=== PATIENT | female | born 1935 | race Caucasian/White ===

== ENCOUNTER 2017-01-26 08:00 | Outpatient (CLI) | payer MEDICARE, OTHER | END 2017-01-26 08:01 | disposition home or self-care (01) | LOC: BICMAMMO 08:00 | PROVIDERS: ATTEND Family Medicine | DX: Z12.31 Encounter for screening mammogram for malignant neoplasm of breast (principal) | CPT/HCPCS: G0204; G0279; 77063; 77066; 77067; G0202 ==

== ENCOUNTER 2017-03-15 13:23 | Outpatient (CLI) | payer MEDICARE ==
--- NOTE | 2017-03-15 14:08 | ULT ---
RIGHT LOWER EXTREMITY VENOUS DUPLEX SONOGRAM: HISTORY: Right leg pain and edema. FINDINGS: The right common femoral vein and greater saphenous junction are evaluated along with the femoral, de ep femoral, popliteal, and posterior tibial veins. There is good color and spectral Doppler flow, co mpression, and augmentation. Fluid collection at the right popliteal fossa measures up to 4.1 cm keesah gth x 1.1 cm depth. IMPRESSION: 1. No sonographic evidence of deep vein thrombosis within the right lower extremity. 2. Alas cyst right popliteal fossa. POS: DAVID
== END 2017-03-15 13:24 | disposition home or self-care (01) ==
LOC: ULT 13:23
PROVIDERS: ATTEND Internal Medicine Rheumatology
DX: M79.604 Pain in right leg (principal); M71.21 Synovial cyst of popliteal space [Baker], right knee

== ENCOUNTER 2017-06-05 16:23 | Outpatient (CLI) | payer MEDICARE ==
--- NOTE | 2017-06-05 17:56 | ULT ---
RIGHT LOWER EXTREMITY VENOUS DUPLEX SONOGRAM: HISTORY: Right leg pain and edema. TECHNIQUE: The right common femoral vein and greater saphenous junction were evaluated, along with the femoral, deep femoral, popliteal, and posterior tibial veins. FINDINGS: There is good color and spectral Doppler flow, compression, and augmentation. A Alas cyst at the po pliteal fossa measures up to 3.8 cm. IMPRESSION: 1. No sonographic evidence of deep venous thrombosis, right lower extremity. 2. Alas cyst, right popliteal fossa. POS: DAVID
== END 2017-06-05 16:24 | disposition home or self-care (01) ==
LOC: SCSULT 16:23
PROVIDERS: ATTEND Physician Assistant
DX: M79.604 Pain in right leg (principal); M71.21 Synovial cyst of popliteal space [Baker], right knee

== ENCOUNTER 2018-05-04 13:08 | Outpatient (CLI) | payer MEDICARE ==
--- NOTE | 2018-05-04 15:28 | RAD ---
4 VIEWS LUMBOSACRAL SPINE: Date: 05/04/18 HISTORY: Low back pain and left hip pain. Prior low back surgeries. FINDINGS: AP, lateral, and flexion/extension views of lumbosacral spine were performed. The patient is status p ost fusion of L2, L3, and L4, with right-sided pedicle screws. No perihardware lucency seen surroundi ng the screws. The patient is also fused at L5-S1. Disc spacers are seen in good position within the L2-3 and L3-4 disc spaces. The vertebral bodies demonstrate normal alignment without fracture or subl uxation. Alignment is unchanged with flexion and extension. There are also degenerative changes with intervertebral disc space narrowing in the lower thoracic and upper lumbar spine. IMPRESSION: Postsurgical changes of the lumbar spine with unchanged alignment with bending. POS: DAVID
--- NOTE | 2018-05-04 16:31 | CT ---
CT OF THE LUMBAR SPINE WITHOUT CONTRAST: 05/04/18 INDICATION: History of low back pain and left hip pain with three prior back surgeries. COMPARISON: Prior CT of the lumbar spine dated 05/17/17. FINDINGS: The right posterolateral interbody fusion spanning L3 through L5 is stable. There is solid osseous in corporation of the interbody bone graft extending on the left from L3 to L5 and on the right from L3 to S1. There is slight retrolisthesis of L2 on L3 which has progressed from a prior exam. There is a superior end plate compression deformity of T12 that appears chronic. There are moderate degenerative changes of the SI joints bilaterally. At the L5-S1 level, there is a broad based disc osteophyte complex and facet hypertrophy inducing mod erate osseous neural foraminal narrowing. This has mildly progressed since the prior exam. At L4-5, there is a disc osteophyte complex and facet hypertrophy inducing at least moderate to sever e bilateral neural foraminal narrowing. This is mildly progressed from the prior exam. At L3-4, there is a broad based disc osteophyte complex and facet hypertrophy inducing moderate right neural foraminal narrowing which is stable to the prior exam. At the L2-3 level, there is at least moderate central canal narrowing at L2-3 due to broad based disc osteophyte complex and facet hypertrophy. This has mildly worsened from the prior exam. There is sev ere bilateral osseous neural foraminal narrowing due to the disc osteophyte complex and facet joint d egenerative change as well as the retrolisthesis. This is new from the prior exam. At L1-2, there is a disc osteophyte complex and facet hypertrophy inducing mild bilateral osseous prudence ral foraminal narrowing which has progressed from the prior exam. At T12-L1, there is no appreciable central canal or neural foraminal narrowing. IMPRESSION: 1. Worsening adjacent segment degeneration at L2-3 with retrolisthesis of L2-3 in addition to a disc osteophyte complex and facet hypertrophy inducing now moderate central canal narrowing with at l east severe bilateral neural foraminal narrowing. 2. Mild progression of osseous neural foraminal narrowing at L4-5 and L5-S1 due to more prominen t osteophyte formation. 3. Posterior interbody fusion of L3 through L5 with solid osseous incorporation of the bone surinder t. Bone graft does appear to be incorporating on the right from L5 to S1 as well. 4. 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 POS: H
--- NOTE | 2018-05-04 16:41 | MRI ---
LUMBAR SPINE MRI WITHOUT CONTRAST: Date: 05/04/18 HISTORY: [id number] female with a history of prior lumbar spine surgery and complaints of low back pain with left hip pain/radiculopathy. TECHNIQUE: Multiplanar, multisequence MR imaging of the lumbar spine provided without contrast. FINDINGS: Sagittal STIR imaging demonstrates no focal area of osseous marrow edema. There appears to be a transitional type S1 vertebral body with right-sided pedicle screws thus presen t at L3, L4, and L5 with vertically oriented interlocking rods. Intervertebral disc devices are noted at the L3-4 and L4-5 levels. On the basis of five lumbar-type vertebral bodies, the conus medullaris terminates at the L1 level. T12-L1: There is disc space narrowing and disc desiccation with minimal disc bulge causing no signif icant central canal or neural foraminal stenosis. L1-2: Bilateral facet hypertrophy, left greater than right. There is disc space narrowing and vacuum disc formation with a posterior disc osteophyte complex leading to a mild degree of central canal st enosis. Mild facet hypertrophy bilaterally with no significant associated neural foraminal stenosis. L2-3: There is disc space narrowing and disc desiccation with a disc osteophyte complex. There is a mild degree of associated central canal stenosis. Significant facet hypertrophy noted with moderate bilateral neural foraminal stenosis. L3-4: Evaluation for central canal stenosis is limited on the basis of hardware artifact. No signifi cant central canal or neural foraminal stenosis is evident. L4-5: There is disc space narrowing and bilateral facet hypertrophy. Mild bilateral neural foraminal stenosis and mild central canal stenosis. L5-S1: Disc space narrowing and disc desiccation with anterior osteophyte formation and small computer laboratory technician ior disc osteophyte complex. Mild left lateral recess stenosis. Bilateral facet hypertrophy with no s ignificant neural foraminal stenosis. The visualized retroperitoneal structures demonstrate no acute findings. IMPRESSION: Multilevel postoperative and degenerative change within the lumbar spine. There appears to be a trans itional vertebral body at the S1 level, and thus, there is postoperative hardware at the L3, L4, and L5 levels. Please see images on PACS for labeling purposes. The most significant degenerative change is noted at the L2-3, and to a lesser degree L1-2 levels. POS: [facility]
== END 2018-05-04 13:09 | disposition home or self-care (01) ==
LOC: TBSIIMAG 13:08
PROVIDERS: ATTEND Surgery
DX: M51.16 Intervertebral disc disorders with radiculopathy, lumbar region (principal); M53.3 Sacrococcygeal disorders, not elsewhere classified; M47.26 Other spondylosis with radiculopathy, lumbar region; M43.16 Spondylolisthesis, lumbar region; M48.061 Spinal stenosis, lumbar region without neurogenic claudication; M48.07 Spinal stenosis, lumbosacral region; Z98.1 Arthrodesis status
CPT/HCPCS: 72110; 72131; 72148

== ENCOUNTER 2021-01-10 13:42 | Inpatient (IN) | payer MEDICARE ==
[2021-01-10] MEDS ORDERED: Diltiazem 125 MG/25 ML ONE (14:12)
[2021-01-10 14:22] LABS: #Eosinphils 0.1 thou/uL (0.0-0.7); #Lymphocytes 0.9 thou/uL (1.20-3.40); #Monocytes 0.7 thou/uL (0.11-0.59); #Neutrophils 9.7 thou/uL (1.40-6.50); %Eosinophils 0.6 % (0.0-10.0); %Lymphocytes 8.1 % (21.0-51.0); %Monocytes 6.2 % (0.0-10.0); %Neutrophils 85.1 % (42.0-75.0); Hemoglobin 11.8 g/dL (12.0-16.0); Mean Corpuscular HGB CONC 33.6 g/dL (32.0-36.0); Mean Corpuscular Volume 95.2 fL (78.0-98.0); Mean Platelet Volume 6.6 fL (7.4-10.4); Platelet Count 320 thou/uL (130-400); RBC Distribution Width 11.7 % (11.5-14.5); Red Blood Cell (RBC) Count 3.68 mill/uL (4.20-5.40); White Blood Cell (WBC) Count 11.4 thou/uL (4.8-10.8)
[2021-01-10 14:41] LABS: ALT (SGPT) 44 U/L (8-55); AST (SGOT) 67 U/L (5-34); Albumin 3.5 g/dL (3.4-4.8); Alkaline Phosphatase 100 U/L (40-110); Anion Gap 17 mmol/L (10-20); BUN (Urea Nitrogen) 29 mg/dL (9.8-20.1); Bilirubin, Total 0.8 mg/dL (0.2-1.2); Calc. Creatinine Clearance 0 mL/min (70-130); Calcium 8.7 mg/dL (7.8-10.44); Carbon Dioxide 24 mmol/L (23-31); Chloride 102 mmol/L (98-107); Globulin 3.8 g/dL (2.4-3.5); Glucose 200 mg/dL (83-110); Magnesium 2.3 mg/dL (1.6-2.6); Potassium 4.5 mmol/L (3.5-5.1); Protein, Total 7.3 g/dL (5.8-8.1); Sodium 138 mmol/L (136-145)
[2021-01-10 15:04] LABS: CKMB 2.2 ng/mL (0-6.6)
[2021-01-10] MEDS ORDERED: Aspirin Chewable 81 MG TAB ONE (15:05)
[2021-01-10] MEDS ORDERED: Enoxaparin Sodium 80 MG/0.8 ML SYRINGE ONE (15:10)
[2021-01-10] MEDS ORDERED: Diltiazem HCl 125 MG, Admixture Fee 1 EACH in Sodium Chloride 0.9% 100 ML IVPB SCH (17:00)
[2021-01-10] MEDS ORDERED: Digoxin 0.5 MG/2 ML AMP SLOW IVP SCH (17:15)
[2021-01-10] MEDS ORDERED: FLU VACC QS2021-22(65YR UP)/PF 240 MCG/0.7 ML SYRINGE IM ONE (17:30)
[2021-01-10 18:02] LABS: Troponin I 0.078 ng/mL (< 0.028)
[2021-01-10] MEDS ORDERED: methylPREDNISolone Sod Succ/PF 125 MG/2 ML VIAL IVP SCH (18:30)
[2021-01-10] MEDS ORDERED: Ondansetron PF 4 MG/2 ML Vial IVP PRN (19:03)
[2021-01-10] MEDS ORDERED: Bisacodyl 5 MG TAB PO PRN (19:03)
[2021-01-10] MEDS ORDERED: Senokot S 8.6-50 MG TAB PO PRN (19:03)
[2021-01-10] MEDS: Famotidine/PF 20 mg/2ml Vial SLOW IVP SCH (20:36)
[2021-01-10 21:00] LABS: SARS-CoV-2 PCR by NAA Not Detected (NotDetected)
[2021-01-10] MEDS ORDERED: Oseltamivir 75 MG CAP PO SCH (21:00)
[2021-01-10 21:29] LABS: Troponin I 0.057 ng/mL (< 0.028)
[2021-01-10] MEDS ORDERED: Albuterol Sulfate 1.25 MG/3 ML NEB EZPAP SCH (23:59)
[2021-01-11] MEDS ORDERED: Furosemide 20 MG/2 ML VIAL SLOW IVP SCH (03:45)
[2021-01-11] MEDS: Levalbuterol HCl 0.63 MG/3 ML NEB FS SCH ×4 (04:00→18:24)
[2021-01-11 06:17] LABS: #Lymphocytes 0.6 thou/uL (1.20-3.40); #Monocytes 0.1 thou/uL (0.11-0.59); #Neutrophils 5.2 thou/uL (1.40-6.50); %Basophils 0.1 % (0.0-1.0); %Eosinophils 0.1 % (0.0-10.0); %Lymphocytes 9.5 % (21.0-51.0); %Monocytes 2.2 % (0.0-10.0); %Neutrophils 88.1 % (42.0-75.0); Mean Corpuscular HGB CONC 33.2 g/dL (32.0-36.0); Mean Corpuscular Volume 96.4 fL (78.0-98.0); Mean Platelet Volume 6.6 fL (7.4-10.4); Platelet Count 294 thou/uL (130-400); RBC Distribution Width 11.6 % (11.5-14.5); Red Blood Cell (RBC) Count 3.45 mill/uL (4.20-5.40); White Blood Cell (WBC) Count 5.9 thou/uL (4.8-10.8)
[2021-01-11 06:39] LABS: ALT (SGPT) 38 U/L (8-55); AST (SGOT) 43 U/L (5-34); Albumin 3.1 g/dL (3.4-4.8); Alkaline Phosphatase 92 U/L (40-110); Anion Gap 15 mmol/L (10-20); BUN (Urea Nitrogen) 24 mg/dL (9.8-20.1); Bilirubin, Total 0.5 mg/dL (0.2-1.2); Calc. Creatinine Clearance 80 mL/min (70-130); Calcium 9.2 mg/dL (7.8-10.44); Carbon Dioxide 22 mmol/L (23-31); Chloride 106 mmol/L (98-107); Globulin 4.2 g/dL (2.4-3.5); Glucose 182 mg/dL (83-110); Potassium 4.2 mmol/L (3.5-5.1); Protein, Total 7.3 g/dL (5.8-8.1); Sodium 139 mmol/L (136-145)
[2021-01-11] MEDS ORDERED: Metoprolol Tartrate 25 MG TAB PO SCH (09:00)
[2021-01-11] MEDS ORDERED: methylPREDNISolone Sod Succ/PF 125 MG/2 ML VIAL IVP SCH (09:00)
[2021-01-11] MEDS: Atorvastatin Calcium 20 MG TAB PO SCH (09:34)
[2021-01-11] MEDS: Donepezil HCl 10 MG TAB PO SCH (09:34)
[2021-01-11] MEDS: methylPREDNISolone Sod Succ 40 MG VIAL IVP SCH (09:35)
[2021-01-11] MEDS: Famotidine/PF 20 mg/2ml Vial SLOW IVP SCH ×2 (09:35→20:57)
[2021-01-11] MEDS ORDERED: Enoxaparin Sodium 40 MG/0.4 ML SYRINGE SC SCH (10:00)
[2021-01-11] MEDS ORDERED: Furosemide 40 MG/4 ML VIAL SLOW IVP SCH (10:00)
[2021-01-11] MEDS ORDERED: Potassium Chloride 20 MEQ TAB PO SCH (12:00)
[2021-01-11] MEDS: Dronedarone HCl 400 MG TAB PO SCH (16:15)
[2021-01-11] MEDS: Melatonin 3 MG TAB PO SCH (20:57)
[2021-01-12] MEDS: Levalbuterol HCl 0.63 MG/3 ML NEB FS SCH ×4 (00:56→18:34)
[2021-01-12 05:00] LABS: #Basophils 0.1 thou/uL (0.0-0.2); #Lymphocytes 0.7 thou/uL (1.20-3.40); #Monocytes 0.7 thou/uL (0.11-0.59); #Neutrophils 9.6 thou/uL (1.40-6.50); %Basophils 0.5 % (0.0-1.0); %Eosinophils 0.1 % (0.0-10.0); %Monocytes 6.5 % (0.0-10.0); %Neutrophils 86.8 % (42.0-75.0); Hemoglobin 11.2 g/dL (12.0-16.0); Mean Corpuscular HGB CONC 33.3 g/dL (32.0-36.0); Mean Corpuscular Hemoglobin 32.1 pg (27.0-31.0); Mean Corpuscular Volume 96.4 fL (78.0-98.0); Mean Platelet Volume 6.8 fL (7.4-10.4); Platelet Count 337 thou/uL (130-400); RBC Distribution Width 11.7 % (11.5-14.5); Red Blood Cell (RBC) Count 3.47 mill/uL (4.20-5.40)
[2021-01-12 05:25] LABS: Anion Gap 14 mmol/L (10-20); BUN (Urea Nitrogen) 31 mg/dL (9.8-20.1); Calc. Creatinine Clearance 75 mL/min (70-130); Calcium 9.4 mg/dL (7.8-10.44); Carbon Dioxide 24 mmol/L (23-31); Chloride 107 mmol/L (98-107); Glucose 160 mg/dL (83-110); Potassium 4.4 mmol/L (3.5-5.1); Sodium 141 mmol/L (136-145)
[2021-01-12] MEDS ORDERED: Furosemide 40 MG/4 ML VIAL SLOW IVP SCH ×2 (06:00→14:00)
[2021-01-12] MEDS: Donepezil HCl 10 MG TAB PO SCH (08:37)
[2021-01-12] MEDS: methylPREDNISolone Sod Succ 40 MG VIAL IVP SCH (08:38)
[2021-01-12] MEDS: Atorvastatin Calcium 20 MG TAB PO SCH (08:38)
[2021-01-12] MEDS: Dronedarone HCl 400 MG TAB PO SCH (08:38)
[2021-01-12] MEDS: Famotidine/PF 20 mg/2ml Vial SLOW IVP SCH ×2 (08:38→21:13)
[2021-01-12] MEDS ORDERED: Enoxaparin Sodium 40 MG/0.4 ML SYRINGE SC SCH (09:00)
[2021-01-12] MEDS ORDERED: Polyethylene Glycol 3350 17 GM Packet PO SCH (11:00)
[2021-01-12] MEDS ORDERED: Amiodarone 200 MG TAB PO SCH (13:30)
[2021-01-12] MEDS: Furosemide 20 MG/2 ML VIAL SLOW IVP SCH (13:57)
[2021-01-12] MEDS: Diltiazem 125 MG in Sodium Chloride 0.9% 100 ML IVPB SCH (14:56)
[2021-01-12] MEDS: Acetaminophen 325 MG TAB PO PRN ×2 (15:01→23:54)
[2021-01-12] MEDS: Amiodarone 200 MG TAB PO SCH (21:11)
[2021-01-12] MEDS: Enoxaparin Sodium 40 MG/0.4 ML SYRINGE SC SCH (21:13)
[2021-01-12] MEDS: Melatonin 3 MG TAB PO SCH (21:13)
[2021-01-13] MEDS: Milk Of Magnesia 30 ML UDCUP PO PRN ×2 (00:27→08:44)
[2021-01-13] MEDS: Levalbuterol HCl 0.63 MG/3 ML NEB FS SCH ×4 (01:09→18:43)
[2021-01-13] MEDS ORDERED: Mineral Oil ENEMA PR SCH (02:00)
[2021-01-13] MEDS: Diltiazem 125 MG in Sodium Chloride 0.9% 100 ML IVPB SCH ×2 (05:07→18:30)
[2021-01-13] MEDS: Furosemide 20 MG/2 ML VIAL SLOW IVP SCH ×2 (05:12→15:20)
[2021-01-13] MEDS: Amiodarone 200 MG TAB PO SCH ×3 (08:45→21:24)
[2021-01-13] MEDS: Atorvastatin Calcium 20 MG TAB PO SCH (08:45)
[2021-01-13] MEDS: Famotidine/PF 20 mg/2ml Vial SLOW IVP SCH ×2 (08:46→21:24)
[2021-01-13] MEDS: Enoxaparin Sodium 40 MG/0.4 ML SYRINGE SC SCH ×2 (08:46→21:27)
[2021-01-13] MEDS: Donepezil HCl 10 MG TAB PO SCH (08:46)
[2021-01-13] MEDS: methylPREDNISolone Sod Succ 40 MG VIAL IVP SCH (08:46)
[2021-01-13 12:42] VITALS: BMI 32.3
[2021-01-13] MEDS: Melatonin 3 MG TAB PO SCH (21:24)
[2021-01-14] MEDS: Levalbuterol HCl 0.63 MG/3 ML NEB FS SCH ×2 (01:18→07:25)
[2021-01-14 05:00] LABS: Anion Gap 13 mmol/L (10-20); BUN (Urea Nitrogen) 39 mg/dL (9.8-20.1); Calc. Creatinine Clearance 65 mL/min (70-130); Carbon Dioxide 32 mmol/L (23-31); Chloride 98 mmol/L (98-107); Glucose 139 mg/dL (83-110); Potassium 4.1 mmol/L (3.5-5.1); Sodium 139 mmol/L (136-145)
[2021-01-14] MEDS: Furosemide 20 MG/2 ML VIAL SLOW IVP SCH (05:09)
[2021-01-14] MEDS: Donepezil HCl 10 MG TAB PO SCH (08:54)
[2021-01-14] MEDS: Amiodarone 200 MG TAB PO SCH (08:54)
[2021-01-14] MEDS: Famotidine/PF 20 mg/2ml Vial SLOW IVP SCH (08:54)
[2021-01-14] MEDS: Atorvastatin Calcium 20 MG TAB PO SCH (08:54)
[2021-01-14] MEDS: methylPREDNISolone Sod Succ 40 MG VIAL IVP SCH (08:54)
[2021-01-14] MEDS: Enoxaparin Sodium 40 MG/0.4 ML SYRINGE SC SCH (08:55)
[2021-01-14] MEDS: Milk Of Magnesia 30 ML UDCUP PO PRN (08:55)
[2021-01-14 11:34] VITALS: BP 164/71; TEMP 97.4
== END 2021-01-14 13:34 | disposition home or self-care (01) | DRG 280 ==
LOC: ERS 13:42 → 2NO 15:34
PROVIDERS: ADMIT Internal Medicine; ATTEND Internal Medicine
DX: I48.0 Paroxysmal atrial fibrillation (principal); I21.A1 Myocardial infarction type 2; I50.33 Acute on chronic diastolic (congestive) heart failure; I11.0 Hypertensive heart disease with heart failure; Z20.822 Contact with and (suspected) exposure to COVID-19; E78.5 Hyperlipidemia, unspecified; R29.6 Repeated falls; G30.1 Alzheimer's disease with late onset; F02.80 Dementia in other diseases classified elsewhere, unspecified severity, without behavioral disturbance, psychotic disturbance, mood disturbance, and anxiety; M06.9 Rheumatoid arthritis, unspecified; H40.9 Unspecified glaucoma; F32.A Depression, unspecified; R73.9 Hyperglycemia, unspecified; J20.9 Acute bronchitis, unspecified; Z96.653 Presence of artificial knee joint, bilateral; E78.00 Pure hypercholesterolemia, unspecified; Z88.5 Allergy status to narcotic agent; Z91.040 Latex allergy status; Z79.82 Long term (current) use of aspirin; Z79.899 Other long term (current) drug therapy; Z98.1 Arthrodesis status
CPT/HCPCS: 36415; 36416; 71045; 80048; 80053; 82553; 82728; 83036; 83735; 83880; 84484; 85025; 93005; 93306; 94640; 96365; 96366; 96372; 96374; 96376; J1160; J1650; J1940; J2920; J2930; J3490; J7614; S0028; U0003; U0005

== ENCOUNTER 2021-07-25 15:29 | Inpatient (IN) | payer MEDICARE ==
[2021-07-25 16:21] LABS: #Eosinphils 0.1 thou/uL (0.0-0.7); #Lymphocytes 1.5 thou/uL (1.20-3.40); #Monocytes 0.5 thou/uL (0.11-0.59); #Neutrophils 3.7 thou/uL (1.40-6.50); %Basophils 0.5 % (0.0-1.0); %Eosinophils 1.9 % (0.0-10.0); %Lymphocytes 25.6 % (21.0-51.0); %Monocytes 8.8 % (0.0-10.0); %Neutrophils 63.2 % (42.0-75.0); Hemoglobin 11.7 g/dL (12.0-16.0); Mean Corpuscular Volume 96.9 fL (78.0-98.0); Mean Platelet Volume 5.9 fL (7.4-10.4); Platelet Count 256 thou/uL (130-400); RBC Distribution Width 12.8 % (11.5-14.5); Red Blood Cell (RBC) Count 3.64 mill/uL (4.20-5.40); White Blood Cell (WBC) Count 5.9 thou/uL (4.8-10.8)
[2021-07-25 16:42] LABS: ALT (SGPT) 13 U/L (8-55); AST (SGOT) 25 U/L (5-34); Albumin 3.4 g/dL (3.4-4.8); Alkaline Phosphatase 86 U/L (40-110); Anion Gap 12 mmol/L (10-20); BUN (Urea Nitrogen) 10 mg/dL (9.8-20.1); Bilirubin, Total 0.6 mg/dL (0.2-1.2); Calc. Creatinine Clearance 0 mL/min (70-130); Calcium 9.3 mg/dL (7.8-10.44); Carbon Dioxide 25 mmol/L (23-31); Chloride 104 mmol/L (98-107); Globulin 3.4 g/dL (2.4-3.5); Glucose 102 mg/dL (83-110); Potassium 4.2 mmol/L (3.5-5.1); Protein, Total 6.8 g/dL (5.8-8.1); Sodium 137 mmol/L (136-145)
[2021-07-25 17:39] LABS: Bacteria/HPF 2+ HPF (None Seen); Bilirubin Negative (Negative); Blood, Urine Negative (Negative); Clarity Clear (Clear); Glucose, Urine (Dipstick) Normal (Negative); Ketone, Urine Negative (Negative); Leukocyte 75 Leu/uL (Negative); Nitrite Negative (Negative); Protein, Urine (Dipstick) 10 mg/dL (Neg-Trace); RBC/HPF 0-3 HPF (0-3); Specific Gravity, Urine 1.018 (1.002-1.036); Urobilinogen Normal mg/dL (Less than 2); WBC/HPF 21-50 HPF (0-3); pH, Urine 7.5 (5.0-9.0)
[2021-07-25] MEDS ORDERED: cefTRIAXone\\ROCEPHIN 1 GM VIAL ONE (19:41)
[2021-07-25] MEDS ORDERED: Pantoprazole 40 MG VIAL ONE (19:41)
[2021-07-25 20:11] LABS: INR-International Normal Ratio 1.6; PTT 37.2 sec (22.9-36.1)
[2021-07-25] MEDS: Acetaminophen 325 MG TAB PO PRN (22:58)
[2021-07-25] MEDS: Atorvastatin Calcium 20 MG TAB PO SCH (22:59)
[2021-07-25] MEDS: Pantoprazole 40 MG VIAL IVP SCH (23:00)
[2021-07-25 23:29] VITALS: BMI 33.1
[2021-07-25] MEDS ORDERED: hydrALAZINE 20 MG/ML VIAL SLOW IVP PRN (23:33)
[2021-07-26] MEDS: Melatonin 3 MG TAB PO PRN ×2 (00:05→21:58)
[2021-07-26 04:55] LABS: #Eosinphils 0.2 thou/uL (0.0-0.7); #Lymphocytes 1.7 thou/uL (1.20-3.40); #Monocytes 0.5 thou/uL (0.11-0.59); #Neutrophils 3.3 thou/uL (1.40-6.50); %Basophils 0.1 % (0.0-1.0); %Eosinophils 2.7 % (0.0-10.0); %Lymphocytes 30.4 % (21.0-51.0); %Monocytes 8.9 % (0.0-10.0); %Neutrophils 57.9 % (42.0-75.0); Hemoglobin 11.3 g/dL (12.0-16.0); Mean Corpuscular HGB CONC 32.8 g/dL (32.0-36.0); Mean Corpuscular Hemoglobin 31.4 pg (27.0-31.0); Mean Corpuscular Volume 95.8 fL (78.0-98.0); Mean Platelet Volume 6.5 fL (7.4-10.4); Platelet Count 238 thou/uL (130-400); Red Blood Cell (RBC) Count 3.59 mill/uL (4.20-5.40); White Blood Cell (WBC) Count 5.6 thou/uL (4.8-10.8)
[2021-07-26 05:20] LABS: Anion Gap 12 mmol/L (10-20); BUN (Urea Nitrogen) 9 mg/dL (9.8-20.1); Calc. Creatinine Clearance 87 mL/min (70-130); Calcium 9.1 mg/dL (7.8-10.44); Carbon Dioxide 24 mmol/L (23-31); Chloride 105 mmol/L (98-107); Glucose 100 mg/dL (83-110); Potassium 4.1 mmol/L (3.5-5.1); Sodium 137 mmol/L (136-145)
[2021-07-26] MEDS: Amiodarone 200 MG TAB PO SCH (07:49)
[2021-07-26] MEDS: Furosemide 40 MG TAB PO SCH (07:49)
[2021-07-26] MEDS: Pantoprazole 40 MG VIAL IVP SCH ×2 (07:49→20:20)
[2021-07-26] MEDS: Acetaminophen 325 MG TAB PO PRN ×2 (10:58→21:59)
[2021-07-26] MEDS ORDERED: cefTRIAXone\\ROCEPHIN 1 GM in Sodium Chloride 0.9% 100 ML IVPB SCH (18:30)
[2021-07-26] MEDS: Atorvastatin Calcium 20 MG TAB PO SCH (20:20)
[2021-07-27 05:22] LABS: #Eosinphils 0.1 thou/uL (0.0-0.7); #Lymphocytes 1.6 thou/uL (1.20-3.40); #Monocytes 0.6 thou/uL (0.11-0.59); #Neutrophils 3.5 thou/uL (1.40-6.50); %Basophils 0.6 % (0.0-1.0); %Eosinophils 2.2 % (0.0-10.0); %Lymphocytes 27.8 % (21.0-51.0); %Monocytes 9.8 % (0.0-10.0); %Neutrophils 59.7 % (42.0-75.0); Hemoglobin 11.1 g/dL (12.0-16.0); Mean Corpuscular HGB CONC 33.6 g/dL (32.0-36.0); Mean Corpuscular Hemoglobin 32.3 pg (27.0-31.0); Mean Corpuscular Volume 96.1 fL (78.0-98.0); Mean Platelet Volume 6.4 fL (7.4-10.4); Platelet Count 234 thou/uL (130-400); RBC Distribution Width 12.8 % (11.5-14.5); Red Blood Cell (RBC) Count 3.43 mill/uL (4.20-5.40); White Blood Cell (WBC) Count 5.9 thou/uL (4.8-10.8)
[2021-07-27 05:45] LABS: Anion Gap 12 mmol/L (10-20); BUN (Urea Nitrogen) 11 mg/dL (9.8-20.1); Calc. Creatinine Clearance 80 mL/min (70-130); Carbon Dioxide 25 mmol/L (23-31); Chloride 101 mmol/L (98-107); Glucose 111 mg/dL (83-110); Potassium 3.4 mmol/L (3.5-5.1); Sodium 135 mmol/L (136-145)
[2021-07-27] MEDS ORDERED: Electrolyte Replacement Protocol 1 EACH FS ONE (06:42)
[2021-07-27] MEDS ORDERED: Potassium Chloride 20 MEQ TAB PO SCH (06:45)
[2021-07-27] MEDS ORDERED: Electrolyte Replacement Protocol FS PRN (06:45)
[2021-07-27] MEDS ORDERED: Preparation H Ointment 28 GM TUBE TOP PRN (06:46)
[2021-07-27] MEDS: Amiodarone 200 MG TAB PO SCH (08:08)
[2021-07-27] MEDS: Furosemide 40 MG TAB PO SCH (08:08)
[2021-07-27] MEDS: Pantoprazole 40 MG VIAL IVP SCH (08:09)
[2021-07-27] MEDS: Acetaminophen 500 MG TAB PO SCH ×2 (08:49→17:58)
[2021-07-27] MEDS: Preparation H Ointment 28 GM TUBE TOP SCH ×3 (10:17→20:32)
[2021-07-27] MEDS: Diclofenac 1% 100 GM GEL TP SCH ×2 (17:57→22:25)
[2021-07-27] MEDS: Melatonin 3 MG TAB PO PRN (20:30)
[2021-07-27] MEDS: Atorvastatin Calcium 20 MG TAB PO SCH (20:30)
[2021-07-27] MEDS: Nitrofurantoin Monohyd/M-Cryst 100 MG CAP PO SCH (20:31)
[2021-07-28] MEDS: Acetaminophen 500 MG TAB PO SCH ×2 (01:36→09:13)
[2021-07-28 04:40] VITALS: TEMP 97.8
[2021-07-28 04:59] LABS: #Eosinphils 0.1 thou/uL (0.0-0.7); #Lymphocytes 1.6 thou/uL (1.20-3.40); #Monocytes 0.6 thou/uL (0.11-0.59); #Neutrophils 3.5 thou/uL (1.40-6.50); %Basophils 0.2 % (0.0-1.0); %Eosinophils 2.2 % (0.0-10.0); %Lymphocytes 27.5 % (21.0-51.0); %Monocytes 10.1 % (0.0-10.0); Hemoglobin 11.7 g/dL (12.0-16.0); Mean Corpuscular HGB CONC 33.1 g/dL (32.0-36.0); Mean Corpuscular Volume 96.8 fL (78.0-98.0); Mean Platelet Volume 6.1 fL (7.4-10.4); Platelet Count 253 thou/uL (130-400); RBC Distribution Width 12.9 % (11.5-14.5); Red Blood Cell (RBC) Count 3.67 mill/uL (4.20-5.40); White Blood Cell (WBC) Count 5.9 thou/uL (4.8-10.8)
[2021-07-28 05:13] LABS: Anion Gap 13 mmol/L (10-20); BUN (Urea Nitrogen) 10 mg/dL (9.8-20.1); Calc. Creatinine Clearance 81 mL/min (70-130); Calcium 9.1 mg/dL (7.8-10.44); Carbon Dioxide 27 mmol/L (23-31); Chloride 101 mmol/L (98-107); Glucose 111 mg/dL (83-110); Potassium 3.9 mmol/L (3.5-5.1); Sodium 137 mmol/L (136-145)
[2021-07-28 09:00] VITALS: BP 158/74
[2021-07-28] MEDS ORDERED: Polyethylene Glycol 3350 17 GM Packet PO SCH (09:00)
[2021-07-28] MEDS: Furosemide 40 MG TAB PO SCH (09:05)
[2021-07-28] MEDS: Nitrofurantoin Monohyd/M-Cryst 100 MG CAP PO SCH (09:07)
[2021-07-28] MEDS: Amiodarone 200 MG TAB PO SCH (09:07)
[2021-07-28] MEDS: Diclofenac 1% 100 GM GEL TP SCH ×2 (09:14→13:18)
[2021-07-28] MEDS: Preparation H Ointment 28 GM TUBE TOP SCH ×2 (09:14→13:19)
[2021-07-29] MEDS ORDERED: Polyethylene Glycol 3350 17 GM Packet PO SCH (09:00)
== END 2021-07-28 14:15 | DRG 394 ==
LOC: ERS 15:29 → T4-B 18:51 → 2NO 22:26 → OBSVTOIN 07-26 15:29
PROVIDERS: ADMIT Student in an Organized Health Care Education/Training Program; ATTEND Student in an Organized Health Care Education/Training Program
DX: K64.8 Other hemorrhoids (principal); I50.32 Chronic diastolic (congestive) heart failure; N39.0 Urinary tract infection, site not specified; Z20.822 Contact with and (suspected) exposure to COVID-19; N89.8 Other specified noninflammatory disorders of vagina; I11.0 Hypertensive heart disease with heart failure; I48.91 Unspecified atrial fibrillation; B96.20 Unspecified Escherichia coli [E. coli] as the cause of diseases classified elsewhere; E78.5 Hyperlipidemia, unspecified; M06.9 Rheumatoid arthritis, unspecified; F41.9 Anxiety disorder, unspecified; F32.A Depression, unspecified; Z96.612 Presence of left artificial shoulder joint; Z96.611 Presence of right artificial shoulder joint; Z96.653 Presence of artificial knee joint, bilateral; G30.9 Alzheimer's disease, unspecified; F02.80 Dementia in other diseases classified elsewhere, unspecified severity, without behavioral disturbance, psychotic disturbance, mood disturbance, and anxiety; Z88.5 Allergy status to narcotic agent; Z88.2 Allergy status to sulfonamides; Z88.4 Allergy status to anesthetic agent; Z91.040 Latex allergy status; Z79.899 Other long term (current) drug therapy; Z79.01 Long term (current) use of anticoagulants; Z90.710 Acquired absence of both cervix and uterus; Z87.891 Personal history of nicotine dependence
CPT/HCPCS: 36415; 51701; 72170; 80048; 80053; 81003; 81015; 82274; 85025; 85610; 85730; 86850; 86900; 86901; 87077; 87086; 87186; 96374; 96375; 96376; C9113; G0378; J0696; J3490; U0003; U0005

== ENCOUNTER 2021-08-31 16:50 | Inpatient (IN) | payer MEDICARE ==
[2021-08-31] MEDS ORDERED: cefTRIAXone\\ROCEPHIN 1 GM VIAL ONE (17:24)
[2021-08-31 17:35] LABS: Bacteria/HPF 4+ HPF (None Seen); Bilirubin Negative (Negative); Blood, Urine Negative (Negative); Clarity Turbid (Clear); Glucose, Urine (Dipstick) Normal (Negative); Ketone, Urine Trace mg/dL (Negative); Leukocyte 500 Leu/uL (Negative); Nitrite Negative (Negative); Protein, Urine (Dipstick) Negative (Neg-Trace); RBC/HPF None Seen HPF (0-3); Specific Gravity, Urine 1.021 (1.002-1.036); Squamous Epithelial 0-3 HPF (0-3); Urobilinogen Normal mg/dL (Less than 2); WBC/HPF 21-50 HPF (0-3); pH, Urine 5.5 (5.0-9.0)
[2021-08-31 17:50] LABS: INR-International Normal Ratio 1.1; Prothrombin Time 14.2 sec (12.0-14.7)
[2021-08-31 17:51] LABS: PTT 29.2 sec (22.9-36.1)
[2021-08-31 17:55] LABS: ALT (SGPT) 26 U/L (8-55); AST (SGOT) 34 U/L (5-34); Albumin 3.8 g/dL (3.4-4.8); Alkaline Phosphatase 82 U/L (40-110); Anion Gap 17 mmol/L (10-20); BUN (Urea Nitrogen) 20 mg/dL (9.8-20.1); Bilirubin, Total 0.5 mg/dL (0.2-1.2); Calc. Creatinine Clearance 0 mL/min (70-130); Calcium 10.3 mg/dL (7.8-10.44); Carbon Dioxide 30 mmol/L (23-31); Chloride 97 mmol/L (98-107); Estimated GFR 76; Globulin 4.2 g/dL (2.4-3.5); Glucose 108 mg/dL (83-110); Sodium 140 mmol/L (136-145)
[2021-08-31 18:00] LABS: #Eosinphils 0.1 thou/uL (0.0-0.7); #Lymphocytes 2.1 thou/uL (1.20-3.40); #Monocytes 0.5 thou/uL (0.11-0.59); #Neutrophils 3.9 thou/uL (1.40-6.50); %Basophils 0.4 % (0.0-1.0); %Eosinophils 1.3 % (0.0-10.0); %Monocytes 7.4 % (0.0-10.0); %Neutrophils 58.9 % (42.0-75.0); Hemoglobin 15.5 g/dL (12.0-16.0); Mean Corpuscular HGB CONC 32.3 g/dL (32.0-36.0); Mean Corpuscular Hemoglobin 31.1 pg (27.0-31.0); Mean Corpuscular Volume 96.3 fL (78.0-98.0); Mean Platelet Volume 7.3 fL (7.4-10.4); Platelet Count 295 thou/uL (130-400); RBC Distribution Width 12.9 % (11.5-14.5); Red Blood Cell (RBC) Count 4.99 mill/uL (4.20-5.40); White Blood Cell (WBC) Count 6.6 thou/uL (4.8-10.8)
[2021-08-31 18:43] LABS: SARS-CoV-2 NAA Rapid Test Not Detected (NotDetected)
[2021-08-31] MEDS ORDERED: Bisacodyl 5 MG TAB PO PRN (21:48)
[2021-08-31] MEDS ORDERED: Acetaminophen 325 MG TAB PO PRN (21:48)
[2021-08-31 23:20] VITALS: BMI 30.2
[2021-09-01] MEDS: Sodium Chloride 0.9% 1,000 ML IV SCH ×2 (00:48→05:33)
[2021-09-01] MEDS ORDERED: cefTRIAXone\\ROCEPHIN 1 GM in Sodium Chloride 0.9% 100 ML IVPB SCH (05:00)
[2021-09-01 06:51] LABS: Anion Gap 17 mmol/L (10-20); BUN (Urea Nitrogen) 18 mg/dL (9.8-20.1); Calc. Creatinine Clearance 71 mL/min (70-130); Calcium 8.8 mg/dL (7.8-10.44); Carbon Dioxide 21 mmol/L (23-31); Chloride 108 mmol/L (98-107); Estimated GFR 86; Glucose 81 mg/dL (83-110); Potassium 3.2 mmol/L (3.5-5.1); Sodium 143 mmol/L (136-145)
[2021-09-01 07:18] LABS: #Lymphocytes 1.3 thou/uL (1.20-3.40); #Monocytes 0.5 thou/uL (0.11-0.59); #Neutrophils 3.5 thou/uL (1.40-6.50); %Eosinophils 0.7 % (0.0-10.0); %Lymphocytes 24.8 % (21.0-51.0); %Monocytes 9.2 % (0.0-10.0); %Neutrophils 65.2 % (42.0-75.0); Mean Corpuscular HGB CONC 31.8 g/dL (32.0-36.0); Mean Corpuscular Hemoglobin 30.9 pg (27.0-31.0); Mean Corpuscular Volume 97.3 fL (78.0-98.0); Mean Platelet Volume 7.5 fL (7.4-10.4); Platelet Count 223 thou/uL (130-400); Red Blood Cell (RBC) Count 3.88 mill/uL (4.20-5.40); White Blood Cell (WBC) Count 5.3 thou/uL (4.8-10.8)
[2021-09-01] MEDS: Enoxaparin Sodium 40 MG/0.4 ML SYRINGE SC SCH (08:48)
[2021-09-01] MEDS ORDERED: traMADol HCl 50 MG TAB PO PRN (13:00)
[2021-09-01] MEDS ORDERED: Melatonin 3 MG TAB PO PRN (13:00)
[2021-09-01] MEDS: cefTRIAXone\\ROCEPHIN 1 GM in Sodium Chloride 0.9% 100 ML IVPB SCH (17:30)
[2021-09-01] MEDS: Mirtazapine 15 MG TAB PO SCH (20:57)
[2021-09-01] MEDS: Amiodarone 200 MG TAB PO SCH (20:57)
[2021-09-01] MEDS: Atorvastatin Calcium 20 MG TAB PO SCH (20:57)
[2021-09-02 07:49] LABS: #Eosinphils 0.1 thou/uL (0.0-0.7); #Lymphocytes 1.4 thou/uL (1.20-3.40); #Monocytes 0.5 thou/uL (0.11-0.59); #Neutrophils 4.3 thou/uL (1.40-6.50); %Basophils 0.1 % (0.0-1.0); %Eosinophils 1.3 % (0.0-10.0); %Lymphocytes 22.3 % (21.0-51.0); %Monocytes 7.4 % (0.0-10.0); Hemoglobin 11.8 g/dL (12.0-16.0); Mean Corpuscular Hemoglobin 31.9 pg (27.0-31.0); Mean Corpuscular Volume 96.8 fL (78.0-98.0); Mean Platelet Volume 6.8 fL (7.4-10.4); Platelet Count 209 thou/uL (130-400); RBC Distribution Width 12.6 % (11.5-14.5); White Blood Cell (WBC) Count 6.2 thou/uL (4.8-10.8)
[2021-09-02 08:08] LABS: Anion Gap 18 mmol/L (10-20); BUN (Urea Nitrogen) 7 mg/dL (9.8-20.1); Calc. Creatinine Clearance 84 mL/min (70-130); Calcium 8.8 mg/dL (7.8-10.44); Carbon Dioxide 22 mmol/L (23-31); Chloride 101 mmol/L (98-107); Estimated GFR 90; Glucose 68 mg/dL (83-110); Sodium 138 mmol/L (136-145)
[2021-09-02] MEDS: Amlodipine 5 MG TAB PO SCH (10:32)
[2021-09-02] MEDS: Enoxaparin Sodium 40 MG/0.4 ML SYRINGE SC SCH (10:32)
[2021-09-02] MEDS: Bupropion 150 MG XL TAB PO SCH (10:32)
[2021-09-02] MEDS: Amiodarone 200 MG TAB PO SCH ×2 (10:32→20:28)
[2021-09-02] MEDS: Polyethylene Glycol 3350 17 GM Packet PO SCH (10:33)
[2021-09-02] MEDS: cefTRIAXone\\ROCEPHIN 1 GM in Sodium Chloride 0.9% 100 ML IVPB SCH (17:41)
[2021-09-02] MEDS: Ondansetron PF 4 MG/2 ML Vial IVP PRN (18:32)
[2021-09-02] MEDS: Mirtazapine 15 MG TAB PO SCH (20:28)
[2021-09-02] MEDS: Atorvastatin Calcium 20 MG TAB PO SCH (20:28)
[2021-09-03] MEDS: Ondansetron PF 4 MG/2 ML Vial IVP PRN (05:57)
[2021-09-03 07:50] LABS: #Lymphocytes 1.2 thou/uL (1.20-3.40); #Monocytes 0.6 thou/uL (0.11-0.59); #Neutrophils 6.5 thou/uL (1.40-6.50); %Basophils 0.1 % (0.0-1.0); %Eosinophils 0.5 % (0.0-10.0); %Lymphocytes 14.3 % (21.0-51.0); %Monocytes 7.2 % (0.0-10.0); %Neutrophils 77.9 % (42.0-75.0); Hemoglobin 12.9 g/dL (12.0-16.0); Mean Corpuscular HGB CONC 32.3 g/dL (32.0-36.0); Mean Platelet Volume 6.7 fL (7.4-10.4); Platelet Count 222 thou/uL (130-400); RBC Distribution Width 12.6 % (11.5-14.5); Red Blood Cell (RBC) Count 4.16 mill/uL (4.20-5.40); White Blood Cell (WBC) Count 8.3 thou/uL (4.8-10.8)
[2021-09-03 08:18] LABS: Anion Gap 17 mmol/L (10-20); BUN (Urea Nitrogen) 7 mg/dL (9.8-20.1); Calc. Creatinine Clearance 76 mL/min (70-130); Calcium 9.1 mg/dL (7.8-10.44); Carbon Dioxide 24 mmol/L (23-31); Chloride 98 mmol/L (98-107); Estimated GFR 88; Glucose 98 mg/dL (83-110); Potassium 3.2 mmol/L (3.5-5.1); Sodium 136 mmol/L (136-145)
[2021-09-03] MEDS: Amlodipine 5 MG TAB PO SCH (09:34)
[2021-09-03] MEDS: Polyethylene Glycol 3350 17 GM Packet PO SCH (09:34)
[2021-09-03] MEDS: Amiodarone 200 MG TAB PO SCH (09:35)
[2021-09-03] MEDS: Bupropion 150 MG XL TAB PO SCH (09:35)
[2021-09-03] MEDS: Enoxaparin Sodium 40 MG/0.4 ML SYRINGE SC SCH (09:39)
[2021-09-03 12:49] VITALS: BP 154/77; TEMP 98
== END 2021-09-03 16:26 | disposition hospice, inpatient (51) | DRG 689 ==
LOC: ERS 16:50 → T4-B 18:55
PROVIDERS: ADMIT Internal Medicine; ATTEND Internal Medicine
DX: N30.00 Acute cystitis without hematuria (principal); G93.41 Metabolic encephalopathy; I50.32 Chronic diastolic (congestive) heart failure; Z20.822 Contact with and (suspected) exposure to COVID-19; F32.A Depression, unspecified; M06.9 Rheumatoid arthritis, unspecified; F41.9 Anxiety disorder, unspecified; I11.0 Hypertensive heart disease with heart failure; Z96.619 Presence of unspecified artificial shoulder joint; Z96.653 Presence of artificial knee joint, bilateral; G30.1 Alzheimer's disease with late onset; F02.80 Dementia in other diseases classified elsewhere, unspecified severity, without behavioral disturbance, psychotic disturbance, mood disturbance, and anxiety; E78.2 Mixed hyperlipidemia; F39 Unspecified mood [affective] disorder; E86.0 Dehydration; B96.20 Unspecified Escherichia coli [E. coli] as the cause of diseases classified elsewhere; B96.4 Proteus (mirabilis) (morganii) as the cause of diseases classified elsewhere; Z28.21 Immunization not carried out because of patient refusal; Z88.5 Allergy status to narcotic agent; Z88.2 Allergy status to sulfonamides; Z88.4 Allergy status to anesthetic agent; Z91.040 Latex allergy status; Z79.899 Other long term (current) drug therapy; Z90.710 Acquired absence of both cervix and uterus; Z98.890 Other specified postprocedural states; Z87.891 Personal history of nicotine dependence; Z82.49 Family history of ischemic heart disease and other diseases of the circulatory system; Z86.73 Personal history of transient ischemic attack (TIA), and cerebral infarction without residual deficits
CPT/HCPCS: 36415; 36416; 70450; 71045; 74176; 80048; 80053; 81003; 81015; 83605; 84443; 84484; 85025; 85610; 85730; 87040; 87077; 87086; 87149; 87186; 93005; 94760; 97139; J0696; J1650; J2405; J3490; J7050; U0002; U0003; U0005